=== PATIENT | female | born 1960 | race Caucasian/White ===

== ENCOUNTER 2020-11-30 19:33 | Emergency (ER) | payer OTHER, SELFPAY ==
--- OUTSIDE RECORDS SUMMARY | 2020-11-30 19:36 | XMS REPORT | Continuity of Care Document ---
:1960 Author Organization [facility] t Address [address] [place] [address] Dr. Esparza [address] [place] [address] Care Team Providers Name Role Phone Unavailable Unavailable Unavailable Problems This patient has no known problems. Allergies, Adverse Reactions, Alerts This patient has no known allergies or adverse reactions. Medications Ordered Filled Start Stop Current Ordering Indication Dosage Frequency Signature Comments Components Source Medication Medication Date Date Medication? Clinician (SIG) Name Name Atorvastati Atorvastati Yes Tammy [address] [facility] Calcium n Calcium [place] [facility] Yes Tammy [address] [facility] [place] [facility] GlipiZIDE GlipiZIDE Yes Tammy TAKE ONE [facility] [place] TABLET BY [facility] Valsartan-H Valsartan-H Yes Tammy TAKE ONE [facility] ydrochlorot ydrochlorot [place] TABLET BY [facility] h[facility]ide hiazide M[facility] DAILY l [facility] ProAir HFA ProAir HFA Yes Tammy [address] [facility] [place] needed [facility] Procedures This patient has no known procedures. Encounters Start End Encounter Admission Attending Care Care Encounter Source Date/Time Date/Time Type Type Clinicians Facility Department ID 2020-07-08 2020-07-08 Outpatient [facility] [id number] [facility] 2020-06-11 2020-06-11 [facility] [id number] [facility] 09:[facility]:00 09:00:00 t [facility] Medicine Medicine Outpati ent Clinics 2020-06-10 2020-06-10 [facility] [id number] [facility] 16:41:00 16:41:00 t [facility] l Medicine Outpati ent Clinics 2020-06-08 2020-06-08 [facility] [id number] 09:15:00 09:15:00 t [facility] Medicine l Medicine Outpati ent Clinics 2020-06-02 2020-06-02 [facility] [id number] [address] 08:00:00 08:00:[address] [facility] Medicine Medicine Outpati ent Clinics 2020-06-01 2020-06-01 [facility] [id number] [facility] 16:30:00 16:30:00 [facility] Medicine Outpati ent Clinics 2020-05-26 2020-05-26 [facility] [id number] 14:28:00 14:28:00 [facility] Medicine Outpati ent Clinics 2020-03-25 2020-03-25 [facility] [id number] [address] 14:40:00 14:40:[address] [facility] Medicine Medicine Outpati ent Clinics 2020-02-26 2020-02-26 [facility] [id number] [facility] [address] 08:49:00 08:49:[address] [facility] Medicine Medicine Outpati ent Clinics 2020-01-07 2020-01-07 [facility] [id number] [facility] 09:58:00 09:58:00 [facility] Medicine Outpati ent Clinics 2019-12-06 2019-12-06 [facility] [id number] [address] 09:40:00 09:40:[address] [facility] Medicine l Medicine Outpati ent Clinics 2019-11-15 2019-11-15 Outpatient Herman George [id number] 11:29:00 11:29:00 [facility] Out[facility]iatric [facility] Clinics 2019-09-30 2019-09-30 Outpatient Herman George [id number] [address] 16:00:00 16:00:00 [facility] Out[facility]iatric ent Clinics 2019-09-04 2019-09-04 Outpatient Herman George [id number] 14:40:00 14:40:00 [facility] ent Clinics Results This patient has no known results.
[2020-11-30 20:01] LABS: Absolute Lymphocytes (CBC) 1.2 K/uL (0.7-4.9); Basophils % 0.8 % (0-1.3); Hematocrit 42.6 % (36.0-45.0); Lymphocytes % 28.1 % (15.3-44.8); MPV 8.3 fL (7.6-11.3); RBC Red Blood Cell Count 4.78 M/uL (3.86-4.86)
[2020-11-30] MEDS ORDERED: ONDANSETRON 4 MG/2 ML VIAL ONE ×2 (20:02→20:21)
[2020-11-30] MEDS ORDERED: NA CHLORIDE 0.9% 500 ML ONE ×2 (20:02→21:23)
[2020-11-30 20:13] LABS: Potassium 4.2 mmol/L (3.5-5.1)
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
[2020-11-30] MEDS ORDERED: PROMETHAZINE INJ 25 MG/ML AMP ONE (20:56)
[2020-11-30] MEDS ORDERED: MECLIZINE HCL 12.5 MG TAB ONE (21:23)
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
== END 2020-11-30 21:50 | disposition home or self-care (01) ==
LOC: ER 19:33
DX: R07.89 Other chest pain (principal); R10.31 Right lower quadrant pain; R42 Dizziness and giddiness; V59.49XA Driver of pick-up truck or van injured in collision with other motor vehicles in traffic accident, initial encounter; Z88.2 Allergy status to sulfonamides; I10 Essential (primary) hypertension
CPT/HCPCS: 36415; 70450; 71260; 72125; 74177; 80048; 82565; 85025; 96361; 96374; 96375; 99284; J2405; J2550; J7040; Q9967

== ENCOUNTER → 2020-11-30 | Emergency (ER) | payer SELFPAY ==
--- OUTSIDE RECORDS SUMMARY | 2020-11-30 19:42 | XMS REPORT | Continuity of Care Document ---
:[address] [facility] t Address [address] [place] [address] Dr. Esparza [address] [place] [address] Care Team Providers Name Role Phone Unavailable [...] tablet [facility] Calcium n Calcium [place] [facility] Yes Tamym [address] [facility] [place] [facility]ics GlipiZIDE GlipiZIDE Yes Tammy TAKE ONE [facility] [place] TABLET BY [facility] TWICE A l DAY [facility] Valsartan-H Valsartan-H Yes Tammy TAKE ONE [facility] ydrochlorot ydrochlorot [place] TABLET BY [facility] hiazide [facility] DAILY l [facility]ics ProAir HFA ProAir HFA Yes Tammy [address] [facility] [place] needed [facility] Procedures This patient has no known procedures. Encounters Start End Encounter Admission Attending Care Care Encounter Source Date/Time Date/Time Type Type Clinicians Facility Department ID 2020-07-08 2020-07-08 Outpatient [facility] [id number] [facility] 2020-06-11 2020-06-11 [facility] [id number] [facility] 09:00:00 09:00:00 t [facility] Medicine Medicine Outpati ent Clinics 2020-06-10 2020-06-10 [facility] [id number] [address] 16:41:00 16:41:00 t [facility] l Medicine Outpati ent Clinics 2020-06-08 2020-06-08 [facility] [id number] [facility] 09:15:00 09:15:00 t [facility] Medicine l Medicine Outpati ent Clinics 2020-06-02 2020-06-02 [facility] [id number] [address] 08[facility]00[facility]00 08[facility]00:00 [facility] Medicine Outpati [facility] Clinics 2020-06-01 2020-06-01 [facility] [id number] 16:30:00 16:30:00 [facility] Medicine Outpati ent Clinics 2020-05-26 2020-05-26 [facility] [id number] [facility] [address] 14:28:00 14:28:00 [facility] Medicine Outpati ent Clinics 2020-03-25 2020-03-25 [facility] [id number] 14:40:00 14:40:00 [facility] Medicine Medicine Outpati ent Clinics 2020-02-26 2020-02-26 [facility] [id number] [facility] [address] 08:49:00 08:49:00 [facility] Medicine Medicine Outpati ent Clinics 2020-01-07 2020-01-07 [facility] [id number] 09:58:00 09:58:00 [facility] Medicine Outpati ent Clinics 2019-12-06 2019-12-06 [facility] [id number] 09:40:00 09:40:00 [facility] Medicine l Medicine Outpati ent Clinics 2019-11-15 2019-11-15 Outpatient Herman George [id number] [facility] 11:29:00 11:29:00 [facility] 2019-09-30 2019-09-30 Outpatient Herman George [id number] 16:00:00 16:00:00 [facility] 2019-09-04 2019-09-04 Outpatient Herman George [id number] 14:40:00 14:40:00 [facility] ent Clinics Results This patient has no known results.
== END ==
LOC: ER 19:40
DX: Z02.9 Encounter for administrative examinations, unspecified (principal)